=== PATIENT | female | born 1970 | race Caucasian/White ===

== ENCOUNTER 2019-06-07 21:57 | Emergency (ER) | payer BC ==
[2019-06-07 22:03] VITALS: BP 126/82; PULSE 64; TEMP 98; BMI 26.0
[2019-06-07] MEDS ORDERED: AZITHROMYCIN 250 MG TABLET PO ONE (23:29)
--- NOTE | 2019-06-07 23:31 | PDOC ---
History of Present Illness - General Chief Complaint: Bite Stated Complaint: BITE TO UPPER THIGH Time Seen by Provider: 06/07/19 22:04 - History of Present Illness Initial Comments: This otherwise healthy 48-year-old woman presents with mildly painful, erythematous area of her medial proximal right thigh. Patient believes that she was bitten by an insect (probably mosquito) approximately 48 hours to presentation when she was outside wearing shorts. Over the next 24 hours, the area was mildly pruritic but she was unaware of any other symptoms. She wore long pants today and did not observe the area until a few hours prior to presentation when she saw that the area of erythema was much more expanded. No previous history of cellulitis or sensitivity to insect toxin. No fever/chills/ muscle or other rash noted Past History - Past Medical History Allergies/Adverse Reactions: Allergies Allergy/AdvReac Type Severity Reaction Status Date / Time shellfish derived Allergy Verified 06/07/19 21:59 Home Medications: Ambulatory Orders Azithromycin 250 mg PO DAILY #4 tablet 06/07/19 COPD: No Other medical history: DENIES - Suicide/Smoking/Psychosocial Hx Smoking History: Never smoked Have you smoked in the past 12 months: No Information on smoking cessation initiated: No Hx Alcohol Use: No Drug/Substance Use Hx: No Review of Systems - Review of Systems Able to Perform ROS?: Yes Comments:: 12 point review of systems is negative except for what is noted in the history of present illness *Physical Exam - Vital Signs Last Vital Signs Temp Pulse Resp BP Pulse Ox 98 F 64 16 126/82 98 06/07/19 22:00 06/07/19 22:00 06/07/19 22:00 06/07/19 22:00 06/07/19 22:00 - Physical Exam Comments: GENERAL:.Adult female, alert and oriented 3, no acute distress HEAD: Normal with no signs of trauma. EYES: PERRLA, EOMI, sclera anicteric, conjunctiva clear. EXTREMITIES: Normal range of motion, no edema. No clubbing or cyanosis. NEUROLOGICAL: Cranial nerves II through XII grossly intact. Normal speech. No focal neurological deficits. SKIN: 4 cm diameter circular, mildly erythematous, mildly edematous area of the proximal medial portion of the right thigh. Area is minimally tender without any evidence of fluctuance or discharge. No blistering noted. No other rash noted Progress Note - Progress Note Progress Note: This 48-year-old woman presents with erythematous circular area of the proximal right thigh. Patient had been outside wearing shorts 48 hours ago in an area where there were flying insects. Area had been pruritic but no other significant symptoms present. Tonight, it was noted the area was expanded, erythematous and slightly tender. Because of the pruritus present in the lesion, ECM is not suspected. More likely this is either enhanced local reaction or early cellulitis. Since the patient has at approximately 48 hours and has no previous history of sensitivity to insect toxin, we will treat for early cellulitis. Since patient has a penicillin ALLERGY (widespread urticaria) and has tolerated azithromycin in the past, we will start with 500 mg of azithromycin given here in the ER followed by 250 mg daily for 4 days. The patient should also apply warm compresses to the area and return here or see her doctor if *DC/Admit/Observation/Transfer Diagnosis at time of Disposition: Cellulitis Qualifiers: Site of cellulitis: extremity Site of cellulitis of extremity: lower extremity Laterality: right Qualified Code(s): L03.115 - Cellulitis of right lower limb - Discharge Dispostion Disposition: HOME Condition at time of disposition: Stable - Prescriptions Prescriptions: Azithromycin 250 mg PO DAILY #4 tablet - Referrals - Patient Instructions Printed Discharge Instructions: Cellulitis Additional Instructions: Azithromycin 250 mg daily for the next 4 days Warm compresses to area of infection at least 3 times a day for the next 5 days Return to ER or see your doctor if area becomes more swollen, painful or has drainage - Post Discharge Activity
[2019-06-07] MEDS ORDERED: AZITHROMYCIN 500 MG TABLET ONE (23:32)
== END 2019-06-07 23:38 | disposition home or self-care (01) ==
LOC: FER 21:57
DX: L03.115 Cellulitis of right lower limb (principal); W57.XXXA Bitten or stung by nonvenomous insect and other nonvenomous arthropods, initial encounter; Y93.89 Activity, other specified; Y92.89 Other specified places as the place of occurrence of the external cause
CPT/HCPCS: 99281-25